=== PATIENT | male | born 1985 | race Caucasian/White ===

== ENCOUNTER 2023-08-19 09:05 | Inpatient (IN) | payer OTHER ==
[~2023-08-19] VITALS: Ht 175.3 cm; Wt 98.9 kg
[2023-08-19] MEDS ORDERED: IV NORMAL SALINE 500 ML BAG IV ONE (09:45)
[2023-08-19] MEDS ORDERED: DIAZEPAM 10 MG/2 ML DISP.SYRIN IV ONE ×2 (09:45→11:00)
[2023-08-19] MEDS ORDERED: PHENOBARBITAL SODIUM 130 MG/1 ML DISP.SYRIN IV ONE (09:45)
[2023-08-19] MEDS ORDERED: DIAZEPAM 10 MG/2 ML DISP.SYRIN ONE ×2 (09:48→11:05)
[2023-08-19] MEDS ORDERED: PHENOBARBITAL SODIUM 130 MG/1 ML DISP.SYRIN ONE (09:48)
[2023-08-19 09:54] LABS: BASOPHILS # (AUTO) 0.1 K/UL (0.0-0.2); EOSINOPHILS % (AUTO) 0.3 % (0.0-7.0); HEMATOCRIT 44.1 % (36.7-47.1); HEMOGLOBIN 15.3 g/dL (12.5-16.3); LYMPHOCYTES # (AUTO) 0.3 K/uL (0.8-4.8); LYMPHOCYTES % (AUTO) 2.8 % (20.5-51.5); MEAN CORPUSCULAR HEMOGLOBIN 33.6 uug (23.8-33.4); MEAN CORPUSCULAR HGB CONC 35 g/dL (32.5-36.3); MEAN CORPUSCULAR VOLUME 96.5 fL (73.0-96.2); MONOCYTES # (AUTO) 0.4 K/uL (0.1-1.30); MONOCYTES % (AUTO) 3.9 % (0.0-11.0); NEUTROPHILS # (AUTO) 10.3 K/uL (1.8-8.9); PLATELET COUNT (AUTO) 183 K/uL (152-348); RED BLOOD CELL COUNT(AUTO) 4.56 MIL/uL (4.06-5.63); RED CELL DISTRIBUTION WIDTH 13.4 % (12.1-16.2); WHITE BLOOD COUNT (AUTO) 11.2 K/uL (3.6-10.2)
[2023-08-19 09:58] LABS: DIFFERENTIAL COMMENT 1
[2023-08-19] MEDS ORDERED: CEFTRIAXONE 1 G in IV DEXTROSE 5% 50 ML IV ONE (10:15)
[2023-08-19] MEDS ORDERED: AZITHROMYCIN IV 500 MG in IV DEXTROSE 5% 250 ML IV ONE (10:15)
[2023-08-19 10:35] LABS: ALBUMIN 3.9 g/dL (3.4-5.0); BILIRUBIN,TOTAL 0.8 mg/dL (0.2-1.0); CALCIUM 8.5 mg/dL (8.5-10.1); CREATININE 0.8 mg/dL (0.6-1.3); POTASSIUM 3.6 mmol/L (3.5-5.1); TOTAL PROTEIN, SERUM 7.7 g/dL (6.4-8.2)
[2023-08-19] MEDS ORDERED: CEFTRIAXONE /D5W 50ML IVPB **ER PYXIS IV ONE (10:55)
[2023-08-19] MEDS ORDERED: AZITHROMYCIN 500MG/ D5W 250ML IVPB **ER PYXIS ONLY IV ONE (10:55)
[2023-08-19] MEDS ORDERED: ACETAMINOPHEN 325 MG TABLET PO PRN (11:00)
[2023-08-19] MEDS ORDERED: REMEDY ESSENTIAL ZINC PASTE 113 GM TP PRN (11:00)
[2023-08-19] MEDS ORDERED: MAGNESIUM HYDROXIDE 30 ML LIQUID UDC PO PRN (11:00)
[2023-08-19] MEDS ORDERED: DIAZEPAM 10 MG/2 ML DISP.SYRIN IV PRN (11:00)
[2023-08-19] MEDS ORDERED: ONDANSETRON 4 MG/2 ML VIAL IV PRN (11:00)
[2023-08-19] MEDS: ALBUTEROL SULFATE 2.5 MG/ 0.5 ML NEBU NEB SCH ×2 (13:30→19:58)
[2023-08-19] MEDS: IPRATROPIUM BROMIDE 0.5 MG/2.5 ML NEBU NEB SCH ×2 (13:30→19:58)
[2023-08-19] MEDS ORDERED: ALBUTEROL SULFATE 2.5 MG/3 ML NEBU ONE (19:37)
[2023-08-19] MEDS ORDERED: IPRATROPIUM BROMIDE 0.5 MG/2.5 ML NEBU ONE (19:37)
[2023-08-19 20:00] VITALS: O2SAT 97
[2023-08-19 20:15] VITALS: O2SAT 97
[2023-08-19 21:55] VITALS: BP 144/99; TEMP 100.2; O2SAT 94
[2023-08-19] MEDS ORDERED: ENOXAPARIN SODIUM 40 MG/0.4 ML DISP.SYRIN SQ SCH (22:00)
[2023-08-19] MEDS: IV NS 1000 ML 1,000 ML IV PRN (22:23)
[2023-08-20] VITALS (10 sets, daily range): BP systolic 133–146; BP diastolic 85–97; TEMP 98.2–99.1; O2SAT 95–99
[2023-08-20] MEDS: IPRATROPIUM BROMIDE 0.5 MG/2.5 ML NEBU NEB SCH ×3 (01:05→13:44)
[2023-08-20] MEDS: ALBUTEROL SULFATE 2.5 MG/ 0.5 ML NEBU NEB SCH ×3 (01:06→13:44)
[2023-08-20] MEDS: IV NS 1000 ML 1,000 ML IV PRN (06:42)
[2023-08-20 07:56] LABS: CALCIUM 7.8 mg/dL (8.5-10.1); CARBON DIOXIDE 25 mmol/L (21-32); CHLORIDE 104 mmol/L (98-107); CHOLESTEROL 234 mg/dL (<200); CREATININE 0.5 mg/dL (0.6-1.3); GLUCOSE 87 mg/dL (74-106); HDL CHOLESTEROL 81 mg/dL (40-60); MAGNESIUM 1.8 mg/dL (1.8-2.4); PHOSPHOROUS 2.9 mg/dL (2.5-4.9); SODIUM SERUM 139 mmol/L (136-145); TRIGLYCERIDES 160 MG/DL (30-150); UREA NITROGEN, BLOOD 8 mg/dL (7-18)
[2023-08-20 07:58] LABS: BASOPHILS % (AUTO) 0.2 % (0.0-2.0); EOSINOPHILS # (AUTO) 0.1 K/uL (0.0-0.7); EOSINOPHILS % (AUTO) 0.5 % (0.0-7.0); HEMATOCRIT 40.1 % (36.7-47.1); LYMPHOCYTES # (AUTO) 1.4 K/uL (0.8-4.8); LYMPHOCYTES % (AUTO) 11.4 % (20.5-51.5); MEAN CORPUSCULAR HEMOGLOBIN 33.7 uug (23.8-33.4); MEAN CORPUSCULAR HGB CONC 35 g/dL (32.5-36.3); MEAN CORPUSCULAR VOLUME 96.4 fL (73.0-96.2); MONOCYTES # (AUTO) 1.1 K/uL (0.1-1.30); MONOCYTES % (AUTO) 8.9 % (0.0-11.0); PLATELET COUNT (AUTO) 148 K/uL (152-348); RED BLOOD CELL COUNT(AUTO) 4.16 MIL/uL (4.06-5.63); RED CELL DISTRIBUTION WIDTH 13.3 % (12.1-16.2); WHITE BLOOD COUNT (AUTO) 12.6 K/uL (3.6-10.2)
[2023-08-20 08:03] LABS: DIFFERENTIAL COMMENT 1; THYROID STIMULATING HORMONE 1.107 mIU/mL (0.358-3.740)
[2023-08-20] MEDS ORDERED: AZITHROMYCIN IV 500 MG in IV DEXTROSE 5% 250 ML IV SCH (09:00)
[2023-08-20] MEDS ORDERED: CEFTRIAXONE 1 G in IV DEXTROSE 5% 50 ML IV SCH (09:00)
[2023-08-20] MEDS ORDERED: PANTOPRAZOLE SODIUM 40 MG VIAL IV SCH (09:00)
[2023-08-20 10:56] LABS: POTASSIUM 2.8 mmol/L (3.5-5.1)
[2023-08-20] MEDS: POTASSIUM CHLORIDE 20 MEQ TAB.PRT.SR PO SCH ×2 (11:19→16:30)
[2023-08-20] MEDS ORDERED: LEVO500T90 PO (14:55)
[2023-08-20] MEDS ORDERED: ALBU8.5H8 INH (14:55)
== END 2023-08-20 17:45 | disposition home or self-care (01) | DRG 871 ==
LOC: ER 09:05 → TELE3 20:55
PROVIDERS: ADMIT Nurse Practitioner Acute Care; ATTEND Nurse Practitioner Acute Care
DX: A41.9 Sepsis, unspecified organism (principal); J15.69 Pneumonia due to other Gram-negative bacteria; F10.232 Alcohol dependence with withdrawal with perceptual disturbance; R09.02 Hypoxemia; Y90.3 Blood alcohol level of 60-79 mg/100 ml; I10 Essential (primary) hypertension; K76.0 Fatty (change of) liver, not elsewhere classified; E66.9 Obesity, unspecified; Z68.32 Body mass index [BMI] 32.0-32.9, adult; D75.89 Other specified diseases of blood and blood-forming organs; E87.6 Hypokalemia; G25.2 Other specified forms of tremor; E78.5 Hyperlipidemia, unspecified; Z71.3 Dietary counseling and surveillance; R00.0 Tachycardia, unspecified
CPT/HCPCS: 36415; 71045; 83605; 83690; 83735; 84100; 84443; 85025; 85610; 87040; 94640; 94760; A4606; A4663; C9113; G0378; G0480; J0456; J0696; J1650; J2560; J3360; J3590; J7040; J7050

== ENCOUNTER 2025-06-20 03:14 | Inpatient (IN) | payer OTHER ==
[~2025-06-20] VITALS: Ht 175.3 cm; Wt 91.4 kg
[~2025-06-20 03:14] MED LIST: ALBU8.5H8 INH; LEVO-43 PO
[2025-06-20] MEDS ORDERED: PHENOBARBITAL SODIUM 130 MG/1 ML DISP.SYRIN ONE (03:55)
[2025-06-20 03:56] LABS: *BILIRUBIN,URIN NEGATIVE (NEGATIVE); *BLOOD, URINE 1+ (NEGATIVE); *CLARITY,URINE CLEAR (CLEAR); *COLOR,URINE YELLOW (YELLOW); *KETONES,URINE NEGATIVE (NEGATIVE); *PROTEIN,URINE 3+ (NEGATIVE); *UROBILINOGEN,URINE 0.2 E.U./dl (NORMAL); LEUKOCYTE ESTERASE ,URINE NEGATIVE (NEGATIVE); NITRITE, URINE NEGATIVE (NEGATIVE); UGLUCOSE NEGATIVE (NEGATIVE)
[2025-06-20 04:05] LABS: *AMPHETAMINE, URINE NEGATIVE (NEGATIVE); *BARBITURATE, URINE NEGATIVE (NEGATIVE); *BENZODIAZEPINE, URINE NEGATIVE (NEGATIVE); *CANNABINOID, URINE POSITIVE (NEGATIVE); *COCCAINE, URINE NEGATIVE (NEGATIVE); *OPIATE, URINE NEGATIVE (NEGATIVE); *PHENCYCLIDINE SCREEN,URINE NEGATIVE (NEGATIVE); FENTANYL, URINE NEGATIVE (NEGATIVE)
[2025-06-20 04:05] LABS: PLATELET COUNT (AUTO) 189 K/uL (152-348); RED BLOOD CELL COUNT(AUTO) 5.25 MIL/uL (4.06-5.63); RED CELL DISTRIBUTION WIDTH 14.5 % (12.1-16.2); WHITE BLOOD COUNT (AUTO) 5.6 K/uL (3.6-10.2)
[2025-06-20] MEDS: PHENOBARBITAL SODIUM 130 MG/1 ML DISP.SYRIN IV ONE (04:09)
[2025-06-20] MEDS: IV NORMAL SALINE 500 ML BAG IV ONE (04:09)
[2025-06-20] MEDS ORDERED: FOLIC ACID 5 MG/ML VIAL IV ONE (04:11)
[2025-06-20] MEDS ORDERED: THIAMINE HCL 200 MG/2 ML VIAL ONE (04:11)
[2025-06-20 04:13] LABS: SQUAMOUS EPITHELIAL CELL,UR NONE SEEN /HPF (NONE SEEN)
[2025-06-20 04:17] LABS: CREATININE 0.7 mg/dL (0.6-1.3); SODIUM SERUM 143 mmol/L (136-145); UREA NITROGEN, BLOOD 8 mg/dL (7-18)
[2025-06-20] MEDS: THIAMINE HCL 200 MG/2 ML VIAL IV ONE (04:17)
[2025-06-20] MEDS: FOLIC ACID 5 MG/ML VIAL IV ONE (04:17)
[2025-06-20 04:21] LABS: ETHANOL 346.0 MG/DL (0-10)
[2025-06-20 04:28] LABS: LACTIC ACID 2.1 mmol/L (0.4-2.0)
[2025-06-20 04:32] LABS: ASPARTATE AMINOTRANSFERASE 110 U/L (15-37); TOTAL PROTEIN, SERUM 8.3 g/dL (6.4-8.2)
[2025-06-20] MEDS: LORAZEPAM 2 MG/1 ML VIAL IV ONE (05:04)
[2025-06-20] MEDS: POTASSIUM CHLORIDE 20 MEQ TAB.PRT.SR PO ONE (05:46)
[2025-06-20 06:14] VITALS: BP 129/74
[2025-06-20] MEDS ORDERED: ACETAMINOPHEN 325 MG TABLET PO PRN (07:15)
[2025-06-20 07:59] VITALS: BP 136/86; TEMP 97.5; O2SAT 96
[2025-06-20] MEDS: CHLORDIAZEPOXIDE HCL 25 MG CAPSULE PO SCH (08:05)
[2025-06-20] MEDS: ENOXAPARIN SODIUM 40 MG/0.4 ML DISP.SYRIN SQ SCH (08:05)
[2025-06-20] MEDS ORDERED: FOLIC ACID 1 MG TABLET PO SCH (09:00)
[2025-06-20] MEDS ORDERED: THIAMINE HCL 100 MG TABLET PO SCH (09:00)
[2025-06-20 12:00] VITALS: BP 130/86; TEMP 98.1; O2SAT 92
[2025-06-20] MEDS: ONDANSETRON 4 MG/2 ML VIAL IV PRN (14:53)
[2025-06-20 16:03] VITALS: BP 151/82; TEMP 98.1; O2SAT 96
[2025-06-20 20:00] VITALS: BP 144/90; TEMP 98.1; O2SAT 97
[2025-06-21 04:10] VITALS: O2SAT 96
[2025-06-21 05:13] LABS: FOLATE (FOLIC ACID), SERUM 8.0 ng/mL (>3.0)
[2025-06-21 06:00] VITALS: BP 149/93; TEMP 98.1; O2SAT 96
[2025-06-21 06:54] LABS: PLATELET COUNT (AUTO) 142 K/uL (152-348); RED BLOOD CELL COUNT(AUTO) 4.96 MIL/uL (4.06-5.63); RED CELL DISTRIBUTION WIDTH 13.9 % (12.1-16.2); WHITE BLOOD COUNT (AUTO) 7.6 K/uL (3.6-10.2)
[2025-06-21 07:18] LABS: CREATININE 0.8 mg/dL (0.6-1.3); SODIUM SERUM 141.0 mmol/L (136-145); UREA NITROGEN, BLOOD 7.0 mg/dL (7-18)
[2025-06-21] MEDS: THIAMINE HCL 100 MG TABLET PO SCH (09:53)
[2025-06-21] MEDS ORDERED: THIA100T13 PO (10:00)
[2025-06-21] MEDS ORDERED: FOLI1TAB94 PO (10:00)
[2025-06-21] MEDS: FOLIC ACID 1 MG TABLET PO SCH (10:01)
[2025-06-21 11:20] VITALS: BP 146/91; TEMP 97.9; O2SAT 97
[2025-06-21 15:08] VITALS: BP 137/90; TEMP 98.7; O2SAT 98
[2025-06-21] MEDS: POTASSIUM CHLORIDE 20 MEQ TAB.PRT.SR PO ONE (15:20)
== END 2025-06-21 15:55 | disposition home or self-care (01) | DRG 897 ==
LOC: ER 03:23 → TELE3 05:42 → MEDSURG3 12:01
PROVIDERS: ADMIT Nurse Practitioner Acute Care
DX: F10.129 Alcohol abuse with intoxication, unspecified (principal); E87.6 Hypokalemia; F10.139 Alcohol abuse with withdrawal, unspecified; J45.909 Unspecified asthma, uncomplicated; R41.82 Altered mental status, unspecified; Y90.8 Blood alcohol level of 240 mg/100 ml or more; Z79.899 Other long term (current) drug therapy; F99 Mental disorder, not otherwise specified; F12.90 Cannabis use, unspecified, uncomplicated
CPT/HCPCS: 36415; 70450; 82746; 83605; 83735; 84100; 85025; A4606; A4663; G0378; G0480; J1650; J2060; J2405; J2560; J3411; J3490; J7040